=== PATIENT | female | born 1950 | race African-American/Black ===

== ENCOUNTER 2016-12-13 04:11 | Emergency (ER) | payer SELFPAY ==
[2016-12-13 04:18] VITALS: BP 127/72; BMI 34.4
--- NOTE | 2016-12-13 04:22 | DR.GENAD ---
HPI - PCP Primary Care Physician: NFD - Complaint/Symptoms Chief Complaint:: PT STATES" I'M HAVING AN ALLERGIC REACTION TOO SOMETHING I GOT BUMPS ALLOVER MY ARMS I'M ITCHING" - Nurses notes reviewed Nurses Notes Review: Yes - Source History Provided: Patient - Mode of Arrival Mode of Arrival: Ambulatory - Timing Onset of Chief Complaint: 12/13/16 Came on: Gradually - Duration Duration: Constant Duration: Hours - Location Location: arms - Severity Severity: Moderate - Modifying Factors Worsens:: unknown - Associated Signs and Symptoms Associated Signs and Symptoms: itching - Other History Other History: Hx of same 2 x this year but not as severe PMH - PMH Past Medical History: No Past Surgical History: Yes Surgical History: Appendectomy - Family History History of Family Medical Conditions: No - Social History Do you use any recreational Drugs:: No Lives With: Family Lives Where: Home - infectious screening In the last 2 months have you had wt loss of >10#?: NO Have you had fever, night sweats or hemotysis?: No Have you traveled outside the country in the last 6 months?: No Isolation: Standard ROS - Review of Systems Constitutional: No Symptoms Reported Eyes: No Symptoms Reported ENTM: No Symptoms Reported Respiratoy: No Symptoms Reported Cardiovascular: No Symptoms Reported Gastrointestinal/Abdominal: No Symptoms Reported Genitourinary: No Symptoms Reported Neurological: No Symptoms Reported Musculoskeletal: No Symptoms Reported Integumentary: Rash Hematologic/Lymphatic: No Symptoms Reported Endocrine: No Symptoms Reported Psychiatric: No Symptoms Reported PE - Vital Signs Vitals: Temperature 98.2 F Pulse Rate 92 Respiratory Rate 18 Blood Pressure 127/72 O2 Sat by Pulse Oximetry 96 - General Limitations: No Limitations General Appearance: Alert, In No Apparent Distress - Head Head Exam: Normal Inspection - Eyes Eye exam: Normal Appearance, EOMI. negative: Scleral Icterus, Conjunctival Injection - ENT ENT Exam: Normal Exam - Neck Neck Exam: Normal Inspection, Full ROM, Trachea Midline - Respiratory Respiratory Exam: negative: Accessory Muscle Use, Respiratory Distress Respiratory Exam: Bilateral Clear to Auscultation - Cardiovascular Cardiovascular Exam: Regular Rate - Extremities Extremities Exam: Normal Inspection, Full ROM - Neurologic Neurological Exam: Alert, Oriented X3, CN II-XII Intact - Psychiatric Psychiatric Exam: Normal Mood - Skin Skin Exam: Intact, Rash (small whelps on arms). negative: Normal Color - Diagnosis Discharge Problem: Atopic dermatitis Qualifiers: Atopic dermatitis type: unspecified Qualified Code(s): L20.9 - Atopic dermatitis, unspecified - Discharge Plan Condition: Stable Prescriptions: Prednisone [Prednisone DS Dosepak 10 mg (12 day)] 1 alvino PO ONCE #1 alvino - Follow ups/Referrals Follow ups/Referrals: NFD,None [Primary Care Provider] - 3 days - Instructions Instructions: Jaden
[2016-12-13] MEDS ORDERED: DECADRON INJ IM ONE (04:34)
[2016-12-13] MEDS ORDERED: BENADRYL CAP/TAB 25 MG PO ONE ×2 (04:34→04:45)
[2016-12-13] MEDS ORDERED: DECADRON INJ ONE (04:44)
== END 2016-12-13 04:57 | disposition home or self-care (01) ==
LOC: ER 04:11
DX: L20.89 Other atopic dermatitis (principal)
CPT/HCPCS: 96372; 99282; J1100